=== PATIENT | female | born 1940 | race Caucasian/White ===

== ENCOUNTER 2019-01-25 15:31 | Observation (INO) ==
[2019-01-25] MEDS ORDERED: ACETAMINOPHEN 500 MG TABLET PO ONE (15:51)
[2019-01-25] MEDS ORDERED: ONDANSETRON HCL/PF 2 MG/ML VIAL IV ONE (15:51)
[2019-01-25] MEDS ORDERED: NORMAL SALINE 1,000 ML IV ONE ×2 (15:51→17:31)
[2019-01-25 16:04] LABS: Hematocrit 39.5 % (37.0-47.0); Hemoglobin 12.7 gm/dL (12.5-16.0); Mean Cell Volume 92.9 fl (78-100); Mean Corpuscular Hemoglobin 29.9 pg (27-31); Mean Corpuscular Hgb Conc 32.2 g/dl (32-36); Mean Platelet Volume 9.3 fl (8-12.5); Neutrophil # 14.1 K/mm3 (1.3-6.0); Neutrophil % 80.5 % (42-75.0); Platelet Count 155 K/mm3 (150-450); Red Blood Count 4.25 M/mm3 (4.2-5.4); Red Cell Distribution Width 14.1 % (11.5-14.0); White Blood Count 17.4 K/mm3 (4.0-10.5)
[2019-01-25 16:22] LABS: ALT 18 U/L (19-67); AST 14 U/L (0-48); Albumin * 3.4 gm/dl (3.4-5.0); Alkaline Phosphatase * 67 U/L (50-170); BUN/Creatinine Ratio 18.9 (9.0-21.6); Bilirubin, Total 0.6 mg/dL (0.0-1.1); Blood Urea Nitrogen 14 mg/dL (3-23); Calcium * 8.8 mg/dL (7.9-10.9); Carbon Dioxide 26.9 mmol/L (24-32.6); Chloride 98 mmol/L (97-106); Glucose * 138 mg/dL (70-110); Lipase 101 U/L (73-393); Potassium 3.9 mmol/L (3.4-4.6); Sodium 137 mmol/L (132-142); Total Protein 7.3 gm/dL (6.2-8.2); Troponin I Less than 0.017 ng/mL (0.00-0.10)
[2019-01-25] MEDS ORDERED: cefTRIAXone SODIUM 1,000 MG/100 ML BAG IV ONE (16:25)
[2019-01-25] MEDS ORDERED: DEXAMETHASONE SODIUM PHOSP/PF 10 MG/ML VIAL IM ONE (16:31)
[2019-01-25] MEDS ORDERED: IBUPROFEN 400 MG TABLET PO ONE (16:35)
--- NOTE | 2019-01-25 16:42 | ERNOTE ---
Medical Problem HPI - Narrative Date of Service: 01/25/19 - General Chief Complaint: Nausea/Vomiting Time Seen by Provider: 01/25/19 15:45 Source: patient, family Exam Limitations: no limitations - Immun/Allergies/Home Medications Immunizations: IMMUNIZATION HX History of Influenza Vaccine No Hx Pneumococcal Vaccination No Allergies/Adverse Reactions: Allergies No Known Allergies Allergy (Verified 10/10/18 08:22) Home Medications: HOME MEDICATIONS gabapentin 300 mg capsule 300 mg PO Q12H #60 cap 04/21/18 [Last Taken Unknown] lisinopril 10 mg tablet 10 mg PO DAILY #90 tab 08/29/18 [Last Taken Unknown] fluticasone 50 mcg/actuation nasal spray,suspension 1 spray MARIO ALBERTO Q12H #16 g 10/10/18 [Last Taken Unknown] hydrocodone 5 mg-acetaminophen 325 mg tablet 1 tab PO Q8H PRN #30 tab 01/16/19 [Last Taken Unknown] - History of Present History Narrative: Patient presents to the ED for just not feeling well. She has been nauseated all day and felt weak all over. Some dry heaves but no actual vomiting. Has a chronic cough, no different than usual. No abdominal pain, no diarrhea. Nothing seems to make this better or worse. No chest pain. She feels dehydrated. Can't irwin get around because she is so weak at home Timing: constant, getting worse Modifying Factors - (Improves): Present: other - nothing Modifying Factors - (Worsens): Present: other - nothing Review of Systems - Review of Systems Constitutional: Present: other - fever noted here EYE: Absent: vision changes ENT: Absent: ear pain Respiratory: Absent: shortness of breath Cardiology: Absent: chest pain Gastrointestinal/Abdominal: Present: nausea. Absent: diarrhea, abdominal pain Genitourinary: Absent: dysuria Skin: Absent: rash Neurological: Absent: headache, weakness All Other Systems: All systems neg except as marked Medical History (Updated 01/25/19 @ 16:42 by Camden Eng MD) HTN (hypertension) Colonoscopy refused Mammogram declined Arthritis Back pain Essential hypertension Cervical radicular pain Pneumonia Surgical History: Surgical History (Updated 08/14/18 @ 10:19 by Talia Morgan RN) No pertinent past surgical history Family History: Family History (Updated 08/14/18 @ 10:20 by Talia Morgan RN) Sister Diabetes Other Cancer Hypertension Social History: Preferred Language Sami Smoking Status Former smoker Psych History No pertinent hx (Last Updated 10/26/18 @ 12:36 by Avtar Aguilar DO) No Social History Section defined Physical Exam - Physical Exam General Appearance: Present: alert, other - Very fatigued and generalized weakness, it appears that she feels quite unwell Head Exam: Present: normal inspection, no evidence of injury Eye Exam: Normal inspection: bilateral, PERRL: bilateral Ears, Nose, Throat: Present: pharyngeal erythema, tonsillar exudate, dry mucous membranes, other - Her posterior oropharynx is erythematous and here is an exudate noted. No CLAM SHUCKING MACHINE TENDER or PRA. No suggestion of epiglottitis. Neck: Present: normal inspection, nontender Respiratory: Present: no respiratory distress, normal breath sounds, no accessory muscle use, lungs clear Cardiovascular/Chest: Present: regular rate, rhythm Gastrointestinal/Abdominal: Present: normal bowel sounds, nontender, nondistended, soft, other - I can elicit absolutely no tendenress in the abdomen Back Exam: Absent: CVA tenderness (R), CVA tenderness (L) Extremity Exam: Present: normal range of motion Neurological Exam: Present: alert, no motor/sensory deficits Skin Exam: Present: normal color, warm/dry Progress - Results and Orders Patient's Lab Results:: I have reviewed the patient's lab results. - Vital Signs Patient's Vital Signs:: I have reviewed the patient's vital signs. Vital Signs: Vital Signs 01/25/19 15:39 01/25/19 16:34 01/25/19 16:35 Temperature 37.8 C 38.1 C H 38.1 C H Pulse Rate 97 91 91 Respiratory Rate 18 18 16 Blood Pressure 144/77 O2 Sat by Pulse Oximetry 90 L 94 92 L - EKG EKG #1 EKG: NSR EKG read: Interp. by me EKG Comments: NSR rate 95. RBBB. Non-specific, no STEMI - X-Ray X-Ray #1 X-Ray: abdomen Interpretation: Interp. by me X-ray Comments: No real time radiology reads, no acute process by my interpretation. - Progress/Reassessment Chief Complaint: Nausea/Vomiting Progress Note-Subjective: 01/25/19 17:37 Patient received fever therapy and 1L NS. She clinically is dehydrated. IV antibiotics given. IV decadron also give for her strep throat. Her UTI is impressive. This may be whey she has been having the intractable nausea. After IV fluids she still felt poorly and did not feel well enough to go home. Family also felt she would not be in a state to go home. I discussed this with Dr Quinn and he was agreeable to observation status. Continue IV fluids for her dehydration and weakness. Departure Clinical Impression: Nausea, Fever, Strep pharyngitis, UTI (urinary tract infection), Dehydration, Generalized weakness - Departure Disposition: Still a patient Condition: Stable Referrals: Avtar Aguilar DO [Primary Care Provider] -
[2019-01-25 16:51] LABS: Urine Appearance Slightly Cloudy (CLEAR); Urine Bilirubin Negative (NEGATIVE); Urine Blood 250 /ul (NEGATIVE); Urine Color Yellow; Urine Ketone 15 mg/dL (NEGATIVE); Urine Nitrite Positive (NEGATIVE); Urine Protein 15 mg/dL (NEGATIVE); Urine Urobilinogen Normal (NORMAL); Urine WBC >50 /hpf (0-5)
[2019-01-25 16:52] LABS: Urine Bacteria 4+; Urine RBC >50 /hpf (0-5)
--- NOTE | 2019-01-25 21:39 | HP ---
Chief Complaint - Chief Complaint Date of Service: 01/25/19 Time of Service: 21:38 Chief Complaint: sore throat, fever, uti History of Present Illness: 78-year-old female presented to the ER day of admission for fever, fatigue, weakness. Patient been nauseated since pin setter, not wanting to eat due to feeling sick. She also endorses sore throat and some body aches. In the ER she had a positive strep test as well as a dirty urine. She does not have any urinary symptoms. She did have a white count of 17.4 with a left shift to 80.5%. Chem panel was within normal limits. Initial temp was 38.1, other vital signs within normal limits. She was admitted to the floor for strep throat, fever, fatigue. She was given dose of Rocephin prior to being transferred to the floor. Medical History (Updated 01/25/19 @ 21:39 by Burke Quinn DO) Bronchitis HTN (hypertension) Colonoscopy refused Mammogram declined Arthritis Back pain Essential hypertension Cervical radicular pain Pneumonia Surgical History: Surgical History (Updated 01/25/19 @ 21:39 by Burke Quinn DO) No pertinent past surgical history Family History: Family History (Updated 08/14/18 @ 10:20 by Talia Morgan RN) Sister Diabetes Other Cancer Hypertension Social History: Patient Lives/Resources Home Utilized Occupation retired Preferred Language Pashto Do you have any taoism or Yes: [employer] cultural preference? Smoking Status Former smoker Have you smoked in the past 12 No months Psych History No pertinent hx (Last Updated 10/26/18 @ 12:36 by Avtar Aguilar DO) No Social History Section defined Review Of Systems (GEN) - Review of Systems Generalized/Overall Review: Present: Weakness, Fever, Fatigue. Absent: Chills EENTM: Present: Nose Congestion, Throat Pain Respiratory: Present: Cough, Shortness of Breath Cardiac: Absent: Chest Pain, Edema, Palpitations Abdominal: Present: Nausea. Absent: Vomiting, Abdominal Pain, Diarrhea Genitourinary: Absent: Burning, Itching, Urgency, Frequency Musculoskeletal: Present: Back Pain Neurological: Present: No Symptoms Reported Skin: Present: No Symptoms Reported Endocrine: Present: No Symptoms Reported Immunizations: IMMUNIZATION HX History of Influenza Vaccine No Hx Pneumococcal Vaccination No Allergies/Adverse Reactions: Allergies Allergy/AdvReac Type Severity Reaction Status Date / Time No Known Allergies Allergy Verified 01/25/19 18:30 Home Medications: HOME MEDICATIONS gabapentin 300 mg capsule 300 mg PO Q12H #60 cap 04/21/18 [Last Taken 01/25/19 09:00] lisinopril 10 mg tablet 10 mg PO DAILY #90 tab 08/29/18 [Last Taken 01/25/19] hydrocodone 5 mg-acetaminophen 325 mg tablet 1 tab PO Q8H PRN #30 tab 01/16/19 [Last Taken Unknown] Fluticasone Propionate [Flonase Allergy Relief] 1 spray INTRANASAL Q12H PRN 01/25/19 [Last Taken Unknown] Exam - Exam Vital Signs: Vital Signs - Last Taken Temp 37.0 C 01/25/19 18:34 Pulse 77 01/25/19 18:34 Resp 14 01/25/19 18:34 BP 113/48 01/25/19 18:34 Pulse Ox 91 L 01/25/19 18:34 Constitutional: Present: Alert, Oriented x3, Cooperative, Well developed, Well nourished, Elderly ENT Exam: Present: hearing grossly normal, pharyngeal erythema. Absent: nasal drainage, tonsillar exudate Eye Exam: bilateral eye: normal inspection Neck: Present: non-tender, full range of motion, supple. Absent: lymphadenopathy (R), lymphadenopathy (L) Breasts: Present: Exam deferred Respiratory: Present: lungs clear, normal breath sounds Cardiovascular/Chest: Present: normal peripheral pulses, regular rate, rhythm, no edema Abdomen: Present: Normal bowel sounds, soft, nontender, nondistended. Absent: CVA tenderness, suprapubic tenderness /Rectal: Present: Exam deferred Extremity: Absent: calf tenderness, lower extremity edema, pedal edema Skin Exam: Present: normal color, warm/dry Lymphatic: Present: no adenopathy Appearance: Present: appropriate appearance, appropriate insight, neat Eye contact: Present: cooperative, good eye contact Thoughts: Present: normal thought pattern, normal mood /affect Diagnostic Studies: Abnormal Lab Results 01/25/19 01/25/19 01/25/19 Range/Units 15:58 15:58 16:29 WBC 17.4 H (4.0-10.5) K/mm3 RDW 14.1 H (11.5-14.0) % Immature Gran % (Auto) 0.60 H (0.001-0.429) % Immature Gran # (Auto) 0.10 H (0.000-0.0310) K/mm3 Neutrophils % 80.5 H (42-75.0) % Lymphocytes % 11.0 L (20-51) % Neutrophils # 14.1 H (1.3-6.0) K/mm3 Monocytes # 1.3 H (0.0-1.0) k/mm3 Anion Gap 16.0 H (6.8-13.8) mmol/L Random Glucose 138 H (70-110) mg/dL ALT 18 L (19-67) U/L Urine Protein 15 H (NEGATIVE) mg/dL Urine Blood 250 H (NEGATIVE) /ul Urine Nitrate Positive H (NEGATIVE) Ur Leukocyte Esterase 100 H (NEGATIVE) /ul Urine RBC >50 H (0-5) /hpf Urine WBC >50 H (0-5) /hpf Urine Bacteria 4+ H (NONE) Group A Strep Rapid (NEGATIVE) 01/25/19 Range/Units Unknown WBC (4.0-10.5) K/mm3 RDW (11.5-14.0) % Immature Gran % (Auto) (0.001-0.429) % Immature Gran # (Auto) (0.000-0.0310) K/mm3 Neutrophils % (42-75.0) % Lymphocytes % (20-51) % Neutrophils # (1.3-6.0) K/mm3 Monocytes # (0.0-1.0) k/mm3 Anion Gap (6.8-13.8) mmol/L Random Glucose (70-110) mg/dL ALT (19-67) U/L Urine Protein (NEGATIVE) mg/dL Urine Blood (NEGATIVE) /ul Urine Nitrate (NEGATIVE) Ur Leukocyte Esterase (NEGATIVE) /ul Urine RBC (0-5) /hpf Urine WBC (0-5) /hpf Urine Bacteria (NONE) Group A Strep Rapid Positive H (NEGATIVE) Laboratory Results WBC 17.4 K/mm3 (4.0-10.5) H 01/25/19 15:58 RBC 4.25 M/mm3 (4.2-5.4) 01/25/19 15:58 Hgb 12.7 gm/dL (12.5-16.0) 01/25/19 15:58 Hct 39.5 % (37.0-47.0) 01/25/19 15:58 MCV 92.9 fl (78-100) 01/25/19 15:58 MCH 29.9 pg (27-31) 01/25/19 15:58 MCHC 32.2 g/dl (32-36) 01/25/19 15:58 RDW 14.1 % (11.5-14.0) H 01/25/19 15:58 Plt Count 155 K/mm3 (150-450) 01/25/19 15:58 MPV 9.3 fl (8-12.5) 01/25/19 15:58 Immature Gran % (Auto) 0.60 % (0.001-0.429) H 01/25/19 15:58 Immature Gran # (Auto) 0.10 K/mm3 (0.000-0.0310) H 01/25/19 15:58 80.5 % (42-75.0) H 01/25/19 15:58 11.0 % (20-51) L 01/25/19 15:58 7.6 % (0.0-9) 01/25/19 15:58 0.1 % (0.0-3.0) 01/25/19 15:58 0.2 % (0.0-1.0) 01/25/19 15:58 Nucleated RBC % 0.0 k/mm3 (0-1) 01/25/19 15:58 14.1 K/mm3 (1.3-6.0) H 01/25/19 15:58 1.92 k/mm3 (1.5-3.5) 01/25/19 15:58 1.3 k/mm3 (0.0-1.0) H 01/25/19 15:58 0.0 k/mm3 (0.0-0.7) 01/25/19 15:58 Absolute Basophils 0.0 k/mm3 (0.0-0.1) 01/25/19 15:58 Sodium 137 mmol/L (132-142) 01/25/19 15:58 138 mmol/L (130-142) 01/25/19 15:58 Potassium 3.9 mmol/L (3.4-4.6) 01/25/19 15:58 Chloride 98 mmol/L (97-106) 01/25/19 15:58 Carbon Dioxide 26.9 mmol/L (24-32.6) 01/25/19 15:58 16.0 mmol/L (6.8-13.8) H 01/25/19 15:58 BUN 14 mg/dL (3-23) 01/25/19 15:58 0.74 mg/dL (0.4-1.4) 01/25/19 15:58 Est GFR (Non-Af Amer) 80 mL/min (60-130) 01/25/19 15:58 18.9 (9.0-21.6) 01/25/19 15:58 138 mg/dL (70-110) H 01/25/19 15:58 Calcium 8.8 mg/dL (7.9-10.9) 01/25/19 15:58 Calcium Adj for Albumin 9.0 mg/dL (8.4-10.2) 01/25/19 15:58 0.6 mg/dL (0.0-1.1) 01/25/19 15:58 AST 14 U/L (0-48) 01/25/19 15:58 ALT 18 U/L (19-67) L 01/25/19 15:58 67 U/L (50-170) 01/25/19 15:58 Less than 0.017 ng/mL (0.00-0.10) 01/25/19 15:58 7.3 gm/dL (6.2-8.2) 01/25/19 15:58 3.4 gm/dl (3.4-5.0) 01/25/19 15:58 101 U/L (73-393) 01/25/19 15:58 Yellow 01/25/19 16:29 Slightly cloudy (CLEAR) 01/25/19 16:29 6.0 pH (5.0-7.0) 01/25/19 16:29 Ur Specific Advance 1.020 SP.GR. (1.005-1.010) 01/25/19 16:29 15 mg/dL (NEGATIVE) H 01/25/19 16:29 Negative mg/dL (NEGATIVE) 01/25/19 16:29 15 mg/dL (NEGATIVE) 01/25/19 16:29 250 /ul (NEGATIVE) H 01/25/19 16:29 Positive (NEGATIVE) H 01/25/19 16:29 Negative mg/dl (NEGATIVE) 01/25/19 16:29 Prot Sulfosalicylic Acd 1+ mg/dL (0) 01/25/19 16:29 Normal EU/dl (NORMAL) 01/25/19 16:29 Ur Leukocyte Esterase 100 /ul (NEGATIVE) H 01/25/19 16:29 >50 /hpf (0-5) H 01/25/19 16:29 >50 /hpf (0-5) H 01/25/19 16:29 Ur Epithelial Cells None seen /hpf (0-5) 01/25/19 16:29 4+ (NONE) H 01/25/19 16:29 Culture to follow 01/25/19 16:29 Group A Strep Rapid Positive (NEGATIVE) H 01/25/19 Unknown Assessment/Plan - Narrative Narrative: Patient placed in observation for fever, nausea, fatigue, positive strep throat. Patient started on Rocephin in the ER. We will likely switch her to oral antibiotics in the morning, if she is doing well overnight we will send her home tomorrow with follow-up with her PCP in the next week or so. She received a bolus of IV fluids in the ER. Patient currently comfortable in bed. Questionable UTI as patient was asymptomatic. Awaiting culture results Regular diet. No DVT prophylaxis as patient will be here for short time. Nurse to call with any questions or concerns. - Assessment/Plan (1) Strep pharyngitis Problem: Acute (2) Fever Problem: Acute (3) Nausea Problem: Acute (4) UTI (urinary tract infection) Problem: Acute
[2019-01-26] MEDS ORDERED: FLUTICASONE PROPIONATE 120 SPRAY INHALER NS PRN (09:11)
[2019-01-26] MEDS ORDERED: LISINOPRIL 10 MG TABLET PO SCH (09:15)
[2019-01-26] MEDS ORDERED: GABAPENTIN 300 MG CAPSULE PO SCH (09:15)
[2019-01-26] MEDS ORDERED: CEFDINIR 300 MG CAPSULE PO SCH (09:15)
--- NOTE | 2019-01-26 10:20 | DS ---
(1) Strep pharyngitis Problem: Acute (2) Fever Problem: Acute (3) Nausea Problem: Acute (4) UTI (urinary tract infection) Problem: Acute Description of Stay: 78-year-old female admitted to the hospital overnight for fever, fatigue, positive strep throat, questionable UTI. Patient did well with no adverse events while here. She is afebrile her vital signs been stable since being moved to the floor. Patient states that she feels much better and is wanting to be discharged home. We will send her home on cefdinir to cover the strep throat, waiting for culture results of the urine though her UTI is questionable as she is asymptomatic as far as no suprapubic tenderness, no frequency/urgency/pain with urination. Fever likely caused by strep throat but Cefdinir ear likely will cover both. No changes to her chronic medications made at this day. She is to follow-up with her PCP in 1 week. Patient is in agreement with treatment plan. Procedures Performed: none Results and Findings: Pending Mircobiology Results 01/25/19 16:25 Urine,Clean Catch Urine Culture - Preliminary Gram Negative Bacilli Lab Pending Results 01/25/19 15:58: Sodium 137, Plasma Sodium 138, Potassium 3.9, Chloride 98, Carbon Dioxide 26.9, Anion Gap 16.0 H, BUN 14, Creatinine 0.74, Est GFR (Non-Af Amer) 80, BUN/Creatinine Ratio 18.9, Random Glucose 138 H, Calcium 8.8, Calcium Adj for Albumin 9.0, Total Bilirubin 0.6, AST 14, ALT 18 L, Alkaline Phosphatase 67, Troponin I Less than 0.017, Total Protein 7.3, Albumin 3.4, Lipase 101 01/25/19 15:58: WBC 17.4 H, RBC 4.25, Hgb 12.7, Hct 39.5, MCV 92.9, MCH 29.9, MCHC 32.2, RDW 14.1 H, Plt Count 155, MPV 9.3, Immature Gran % (Auto) 0.60 H, Immature Gran # (Auto) 0.10 H, Neutrophils % 80.5 H, Lymphocytes % 11.0 L, Monocytes % 7.6, Eosinophils % 0.1, Basophils % 0.2, Nucleated RBC % 0.0, Neutrophils # 14.1 H, Lymphocytes # 1.92, Monocytes # 1.3 H, Eosinophils # 0.0, Absolute Basophils 0.0 01/25/19 16:29: Urine Color Yellow, Urine Appearance Slightly cloudy, Urine pH 6.0, Ur Specific Effort 1.020, Urine Protein 15 H, Urine Glucose (UA) Negative, Urine Ketones 15, Urine Blood 250 H, Urine Nitrate Positive H, Urine Bilirubin Negative, Prot Sulfosalicylic Acd 1+, Urine Urobilinogen Normal, Ur Leukocyte Esterase 100 H, Urine RBC >50 H, Urine WBC >50 H, Ur Epithelial Cells None seen, Urine Bacteria 4+ H, Urine Culture Comments Culture to follow 01/25/19 : Group A Strep Rapid Positive H Discharge Location: Home Disposition: Home self-care Condition: Good Discharge Activity: Activity as tolerated Discharge Diet: General/regular food Referrals: Avtar Aguilar DO [Primary Care Provider] - One Week Prescriptions (Any new or edited meds): Cefdinir 300 mg PO BID #20 cap Complete Home Medications List: Complete Home Medication List: gabapentin 300 mg capsule 300 mg PO Q12H #60 cap 04/21/18 lisinopril 10 mg tablet 10 mg PO DAILY #90 tab 08/29/18 hydrocodone 5 mg-acetaminophen 325 mg tablet 1 tab PO Q8H PRN #30 tab 01/16/19 Fluticasone Propionate [Flonase Allergy Relief] 1 spray INTRANASAL Q12H PRN 01/25/19 Cefdinir 300 mg PO BID #20 cap 01/26/19
[2019-01-26 11:03] VITALS: BP 140/66
== END 2019-01-26 11:00 | disposition home or self-care (01) ==
LOC: ER 15:31 → MS 15:31
PROVIDERS: ADMIT Family Medicine; ATTEND Family Medicine
CPT/HCPCS: 36415; 74019; 74020; 80053; 81001; 83690; 84484; 85025; 87086; 87430; 93005; 96361; 96365; 96372; 96375; 99285; G0378; J2405